=== PATIENT | female | born 1990 | race Caucasian/White ===

== ENCOUNTER 2018-06-15 11:54 | Emergency (ER) | payer OTHER ==
[~2018-06-15] VITALS: Ht 167.6 cm; Wt 59.0 kg
[2018-06-15] MEDS ORDERED: [UNRECOGNIZED DRUG - OTHER] (12:45)
[2018-06-15] MEDS ORDERED: HYDROXYCHLOROQUINE (12:45)
[2018-06-15] MEDS ORDERED: LIPITOR20 MG (12:46)
[2018-06-15] MEDS ORDERED: MONTELUKAST SOD10 MG (12:46)
[2018-06-15] MEDS ORDERED: ZYRTEC10 M3 (12:46)
[2018-06-15] MEDS ORDERED: PANTOPRAZOLE SO20 MG (12:47)
[2018-06-15] MEDS ORDERED: FLOVENT HFA12 G1 (12:47)
== END 2018-06-15 14:41 | disposition home or self-care (01) ==
LOC: ER 11:54
DX: J11.1 Influenza due to unidentified influenza virus with other respiratory manifestations (principal)

== ENCOUNTER 2018-12-21 11:53 | Outpatient (CLI) | payer OTHER ==
[~2018-12-21 11:53] MED LIST: FLOVENT HFA12 G1; HYDROXYCHLOROQUINE; LIPITOR20 MG; MONTELUKAST SOD10 MG; PANTOPRAZOLE SO20 MG; ZYRTEC10 M3; [UNRECOGNIZED DRUG - OTHER]
== END 2018-12-21 12:09 | disposition home or self-care (01) ==
LOC: LAB 11:53
DX: J11.1 Influenza due to unidentified influenza virus with other respiratory manifestations (principal); J20.0 Acute bronchitis due to Mycoplasma pneumoniae; B27.10 Cytomegaloviral mononucleosis without complications

== ENCOUNTER 2024-02-15 18:56 | Emergency (ER) | payer OTHER ==
[~2024-02-15] VITALS: Ht 167.6 cm; Wt 76.2 kg
[2024-02-15] MEDS ORDERED: ZOLOFT50 MG PO (19:53)
[2024-02-15] MEDS ORDERED: DIPHENHYDRAMINE HCL 50 MG/ML VIAL 1ML IV ONE (20:00)
[2024-02-15] MEDS ORDERED: METHYLPREDNISOLONE SOD SUCC 125 MG VIAL IV ONE (20:00)
[2024-02-15] MEDS ORDERED: METHYLPREDNISOLONE SOD SUCC 125 MG VIAL ONE (20:35)
[2024-02-15] MEDS ORDERED: DIPHENHYDRAMINE HCL 50 MG/ML VIAL 1ML ONE (20:35)
== END 2024-02-15 21:55 | disposition home or self-care (01) ==
LOC: ER 18:58
DX: T78.40XA Allergy, unspecified, initial encounter (principal); Z88.8 Allergy status to other drugs, medicaments and biological substances; J45.909 Unspecified asthma, uncomplicated; E78.00 Pure hypercholesterolemia, unspecified